=== PATIENT | female | born 1950 | race Caucasian/White ===

== ENCOUNTER 2019-05-04 13:56 | Emergency (ER) | payer OTHER ==
[2019-05-04] MEDS ORDERED: HYDROCODONE/APAP 7.5/325 MG TAB ONE ×2 (14:27→15:34)
[2019-05-04] MEDS ORDERED: TETANUS & DIPHTHERIA TOX,ADULT 0.5 ML VIAL ONE (14:27)
--- NOTE | 2019-05-04 15:05 | RAD REPORT ---
EXAM DESCRIPTION: RAD - Wrist Right 3 View - 05/04/2019 2:53 pm CLINICAL HISTORY: Right wrist pain status post injury FINDINGS: No fracture or dislocation is seen. The bones are osteoporotic If the patient continues to have symptoms to suggest an occult fracture then a followup plain film se ana in 7 days would be recommended.
--- NOTE | 2019-05-04 15:08 | RAD REPORT ---
EXAM DESCRIPTION: Amirah Lucia Left05/04/2019 2:52 pm CLINICAL HISTORY: Left leg pain status post injury FINDINGS: No fracture is seen
--- NOTE | 2019-05-04 15:11 | ER ---
Nurse's Notes [facility] Name: Phylicia Ghotra Age: 68 yrs Sex: Female : 1950 Arrival Date: 05/04/2019 Time: 13:59 Bed 6 Private MD: Eliseo Richardson R Diagnosis: Fall due to bumping against object;Abrasion of right wrist;Contusion of right hip;Contusion of right knee;Contusion of left lower leg Presentation: 05/04 14:05 Presenting complaint: Patient states: i fell about 15 minutes, i was putting away a tw2 scooter and i tripped over it and landed on my RIGHT hand and right knee, i am on blood thinners, my head it a bucket. i got dizzy but i did not pass out. Transition of care: patient was not received from another setting of care. Onset of symptoms was May 04, 2019. Risk Assessment: Do you want to hurt yourself or someone else? Patient reports no desire to harm self or others. Initial Sepsis Screen: Does the patient meet any 2 criteria? No. Patient's initial sepsis screen is negative. Does the patient have a suspected source of infection? No. Patient's initial sepsis screen is negative. Care prior to arrival: None. 14:05 Method Of Arrival: Ambulatory tw2 14:05 Acuity: ZINA 3 tw2 14:17 Mechanism of Injury: Fall from standing position. Trauma event details: Injury occurred ca1 in the [facility], Injury occurred: at home. Injury occurred: May 04, 2019. Triage Assessment: 14:08 General: Appears uncomfortable, Behavior is crying. Pain: Complains of pain in right tw2 arm and right leg and right hip. Trauma Activation: Alert Physician: ED Physician; Name: ; Notified At: ; Arrived At: Physician: General Surgeon; Name: ; Notified At: ; Arrived At: Physician: Radiology; Name: ; Notified At: ; Arrived At: Physician: Respiratory; Name: ; Notified At: ; Arrived At: Physician: Lab; Name: ; Notified At: ; Arrived At: Historical: - Allergies: 14:08 meloxicam; tw2 - Home Meds: 14:08 Xarelto 20 mg oral tab 1 tab once daily [Active]; tw2 - PMHx: 14:08 Atrial Fib; GERD; tw2 14:09 blood clots; tw2 - Immunization history:: Last tetanus immunization: unknown. - Social history:: Smoking status: . - Immunization history: Last tetanus immunization: unknown. - Ebola Screening: : Patient denies travel to an Ebola-affected area in the 21 days before illness onset. Screenin:13 Abuse screen: Denies threats or abuse. Nutritional screening: No deficits noted. tw2 Tuberculosis screening: No symptoms or risk factors identified. Fall Risk None identified. Primary Survey: 14:17 NO uncontrolled hemorrhage observed. A: The patient is alert. Airway: patent. ca1 Breathing/Chest: Respiratory pattern: regular, Respiratory effort: spontaneous, unlabored, Chest inspection: symmetrical rise and fall of the chest. Circulation: Heart tones present. Pulses: palpable bilateral radial, brachial, femoral, popliteal, posterior tibial and and dorsalis pedis arteries.. Skin color: pink, Skin temperature: warm, dry. Disability Alert. Exposure/Environment: All clothing and personal items were removed. Forensic evidence collection is not deemed to be indicated at this time. Items placed in patient belonging bag. There is no evidence of uncontrolled external bleeding. Obvious injury(ies) are noted at this time: abrasion on R palmar aspect of wrist, bruises on R knee and L calf. 15:15 Reassessment Airway Airway Patent Breathing/Chest Respiratory pattern Regular ca1 Respiratory effort Spontaneous Unlabored Chest inspection Symmetrical Circulation Heart tones Present Pulses Palpable Color [place] Temperature Warm Dry. Assessment: 14:09 Reassessment: provider at bedside. tw2 14:20 General: Appears in no apparent distress. comfortable, Behavior is calm, cooperative, ca1 appropriate for age. Pain: Complains of pain in right leg and right arm Pain currently is 9 out of 10 on a pain scale. Neuro: Level of Consciousness is awake, alert, obeys commands, Oriented to person, place, time, situation. Cardiovascular: Heart tones S1 S2 present Capillary refill < 3 seconds Patient's skin is warm and dry. Respiratory: Airway is patent Respiratory effort is even, unlabored, Respiratory pattern is regular, symmetrical, Breath sounds are clear bilaterally. GI: Abdomen is flat, non-distended, Bowel sounds present X 4 quads. Abd is soft and non tender X 4 quads. : No deficits noted. No signs and/or symptoms were reported regarding the genitourinary system. EENT: No deficits noted. No signs and/or symptoms were reported regarding the EENT system. Derm: Skin is healthy with good turgor, Skin is pink, warm \T\ dry. Bruising that is green, on right leg and left leg. Musculoskeletal: Circulation, motion, and sensation intact. Capillary refill < 3 seconds, Range of motion: limited in right wrist. Injury Description: Abrasion sustained to palmar aspect of right wrist is dirty, was sustained less than 30 minutes ago. 15:45 Reassessment: No changes from previously documented assessment. Patient is alert, ca1 oriented x 3, equal unlabored respirations, skin warm/dry/pink. Vital Signs: 14:06 BP 139 / 71; Pulse 81; Resp 17; Temp 96.9(TE); Pulse Ox 99% on R/A; Weight 81.65 kg tw2 (R); Height 5 ft. 8 in. (172.72 cm); Pain 9/10; 15:45 BP 123 / 67; Pulse 86; Resp 17 S; Pulse Ox 99% on R/A; ca1 14:06 Body Mass Index 27.37 (81.65 kg, 172.72 cm) tw2 [place] Coma Score: 14:17 Eye Response: spontaneous(4). Verbal Response: oriented(5). Motor Response: obeys ca1 commands(6). Total: 15. Trauma Score (Adult): 14:17 Eye Response: spontaneous(1); Verbal Response: oriented(1); Motor Response: obeys ca1 commands(2); Systolic BP: > 89 mm Hg(4); Respiratory Rate: 10 to 29 per min(4); [place] Score: 15; Trauma Score: 12 ED Course: 13:59 Patient arrived in ED. mr 14:00 Eliseo Richardson MD is Private Physician. mr 14:06 Triage completed. tw2 14:06 Billy Thayer MD is Attending Physician. riaz 14:07 Arm band placed on. tw2 14:09 Elaine Alvares, LATOYA is Primary Nurse. ca1 14:09 Bed in low position. Call light in reach. Adult w/ patient. tw2 14:17 Patient maintains SpO2 saturation greater than 95% on room air. ca1 14:20 Pulse ox on. NIBP on. Warm blanket given. ca1 14:22 Thermoregulation: warm blanket given to patient. ca1 15:11 Eliseo Richardson MD is Referral Physician. [facility] 15:50 No provider procedures requiring assistance completed. Patient did not have IV access ca1 during this emergency room visit. Wound care: to abrasion, located on palmar aspect of right wrist was cleaned with Hibiclens, dressed with Neosporin, 4X4s, Kerlix, Patient tolerated well. 15:52 Crutch training done. Demian wrap to right wrist. 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 Exp: ca1 11/10/2020. Lot #: [id number]. } Route: IM; Site: left deltoid; 15:50 Follow up: Response: No adverse reaction ca1 14:30 Drug: [place] (7.5 mg-325 mg) 2 tabs Route: PO; ca1 14:31 Follow up: Response: RASS: Alert and Calm (0) ca1 15:51 Follow up: Response: No adverse reaction; Pain is decreased; RASS: Alert and Calm (0) ca1 15:44 Drug: Neosporin Ointment 1 application Route: Topical; Site: affected area; ca1 Output: 16:01 Urine: 30ml (Voided); Total: 30ml. ca1 Outcome: 15:11 Discharge ordered by . riaz 16:01 Patient's length of stay was not longer than 2 hours. ca1 16:01 Discharged to home via wheelchair, with significant other. ca1 16:01 Condition: stable 16:01 Discharge instructions given to patient, Instructed on discharge instructions, follow up and referral plans. medication usage, crutch walking, Demonstrated understanding of instructions, follow-up care, medications, crutch walking, Prescriptions given X 1. 16:02 Patient left the ED. ca1 Signatures: Billy Thayer MD MD cha Rivera, Mary mr Gisselle Lewis RN RN tw2 Elaine Alvares RN RN ca1 Corrections: (The following items were deleted from the chart) 14:13 14:07 Reassessment: provider at bedside tw2 tw2
--- NOTE | 2019-05-04 15:12 | EDPHYS ---
Physician Documentation [facility] Name: Phylicia Ghotra Age: 68 yrs Sex: Female : 1950 Arrival Date: 05/04/2019 Time: 13:59 Bed 6 Private MD: Eliseo Richardson R ED Physician Billy Thayer HPI: 05/04 14:19 This 68 yrs old Female presents to ER via Ambulatory with complaints of Fall riaz Injury. 14:19 Details of fall: The patient fell from an upright position, while walking. Onset: The riaz symptoms/episode began/occurred just prior to arrival. Associated injuries: The patient sustained pelvis, right arm, right leg and left leg, decreased range of motion, painful injury. Severity of symptoms: At their worst the symptoms were moderate, in the emergency department the symptoms are unchanged. The patient has not experienced similar symptoms in the past. Historical: - Allergies: 14:08 meloxicam; tw2 - Home Meds: 14:08 Xarelto 20 mg oral tab 1 tab once daily [Active]; tw2 - PMHx: 14:08 Atrial Fib; GERD; tw2 14:09 blood clots; tw2 - Immunization history:: Last tetanus immunization: unknown. - Social history:: Smoking status: . - Immunization history: Last tetanus immunization: unknown. - Ebola Screening: : Patient denies travel to an Ebola-affected area in the 21 days before illness onset. ROS: 14:20 Constitutional: Negative for fever, chills, and weight loss, Eyes: Negative for injury, riaz pain, redness, and discharge, ENT: Negative for injury, pain, and discharge, Neck: Negative for injury, pain, and swelling, Cardiovascular: Negative for chest pain, palpitations, and edema, Respiratory: Negative for shortness of breath, cough, wheezing, and pleuritic chest pain, Abdomen/GI: Negative for abdominal pain, nausea, vomiting, diarrhea, and constipation, Back: Negative for injury and pain, : Negative for injury, bleeding, discharge, and swelling, Neuro: Negative for headache, weakness, numbness, tingling, and seizure, Psych: Negative for depression, anxiety, suicide ideation, homicidal ideation, and hallucinations, Allergy/Immunology: Negative for hives, rash, and allergies, Endocrine: Negative for neck swelling, polydipsia, polyuria, polyphagia, and marked weight changes, Hematologic/Lymphatic: Negative for swollen nodes, abnormal bleeding, and unusual bruising. 14:20 MS/extremity: Positive for abrasion, decreased range of motion, pain, of the pelvis, right arm, right leg and left leg. Exam: 14:20 Constitutional: This is a well developed, well nourished patient who is awake, alert, riaz and in no acute distress. Head/Face: Normocephalic, atraumatic. Eyes: Pupils equal round and reactive to light, extra-ocular motions intact. Lids and lashes normal. Conjunctiva and sclera are non-icteric and not injected. Cornea within normal limits. Periorbital areas with no swelling, redness, or edema. ENT: Nares patent. No nasal discharge, no septal abnormalities noted. Tympanic membranes are normal and external auditory canals are clear. Oropharynx with no redness, swelling, or masses, exudates, or evidence of obstruction, uvula midline. Mucous membranes moist. Neck: Trachea midline, no thyromegaly or masses palpated, and no cervical lymphadenopathy. Supple, full range of motion without nuchal rigidity, or vertebral point tenderness. No Meningismus. Chest/axilla: Normal chest wall appearance and motion. Nontender with no deformity. No lesions are appreciated. Cardiovascular: Regular rate and rhythm with a normal S1 and S2. No gallops, murmurs, or rubs. Normal PMI, no JVD. No pulse deficits. Respiratory: Lungs have equal breath sounds bilaterally, clear to auscultation and percussion. No rales, rhonchi or wheezes noted. No increased work of breathing, no retractions or nasal flaring. Abdomen/GI: Soft, non-tender, with normal bowel sounds. No distension or tympany. No guarding or rebound. No evidence of tenderness throughout. Back: No spinal tenderness. No costovertebral tenderness. Full range of motion. Female : Normal external genitalia. Neuro: Awake and alert, GCS 15, oriented to person, place, time, and situation. Cranial nerves II-XII grossly intact. Motor strength 5/5 in all extremities. Sensory grossly intact. Cerebellar exam normal. Normal gait. Psych: Awake, alert, with orientation to person, place and time. Behavior, mood, and affect are within normal limits. 14:20 Skin: injury, abrasion(s), moderate sized abrasion noted, of the right wrist and right hand, avulsion(s). 14:22 Head/face: Exam is negative for acute changes, obvious evidence of injury or deformity, riaz abrasion(s), morales signs, contusion, deformity, ecchymosis, erythema. 14:22 Neck: Exam negative for acute changes. Vital Signs: 14:06 BP 139 / 71; Pulse 81; Resp 17; Temp 96.9(TE); Pulse Ox 99% on R/A; Weight 81.65 kg tw2 (R); Height 5 ft. 8 in. (172.72 cm); Pain 9/10; 15:45 BP 123 / 67; Pulse 86; Resp 17 S; Pulse Ox 99% on R/A; ca1 14:06 Body Mass Index 27.37 (81.65 kg, 172.72 cm) tw2 [place]a Coma Score: 14:17 Eye Response: spontaneous(4). Verbal Response: oriented(5). Motor Response: obeys ca1 commands(6). Total: 15. Trauma Score (Adult): 14:17 Eye Response: spontaneous(1); Verbal Response: oriented(1); Motor Response: obeys ca1 commands(2); Systolic BP: > 89 mm Hg(4); Respiratory Rate: 10 to 29 per min(4); [place] Score: 15; Trauma Score: 12 MDM: 14:07 Patient medically screened. [facility] 14:21 Data reviewed: vital signs, nurses notes, lab test result(s), radiologic studies. [facility] 05/04 14:18 Order name: Pelvis XRAY [facility] 05/04 14:18 Order name: Hip Right 2 View XRAY [facility] 05/04 14:18 Order name: Tib Fib Left XRAY [facility] 05/04 14:18 Order name: Wrist Right 3 View XRAY [facility] 05/04 14:18 Order name: Knee Right 3 View XRAY [facility] 05/04 15:06 Order name: RAD; Complete Time: 15:32 EDMS 05/04 14:18 Order name: Ice pack; Complete Time: 14:21 [facility] 05/04 15:09 Order name: RAD; Complete Time: 15:32 EDMS 05/04 15:14 Order name: RAD; Complete Time: 15:32 EDNM 05/04 15:28 Order name: RAD; Complete Time: 15:32 [facility] 05/04 15:29 Order name: RAD; Complete Time: 15:32 [facility] 05/04 14:18 Order name: Wound dressing; Complete Time: 15:50 [facility] 05/04 14:24 Order name: Urine Dipstick-Ancillary (obtain specimen); Complete Time: 15:44 [facility] 05/04 15:33 Order name: Crutches; Complete Time: 15:50 [facility] Administered Medications: 14:30 Drug: Tetanus-Diphtheria Toxoid Adult 0.5 ml {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 Exp: ca1 11/10/2020. Lot #: [id number]. } Route: IM; Site: left deltoid; 15:50 Follow up: Response: No adverse reaction [facility] 14:30 Drug: [place] (7.5 mg-325 mg) 2 tabs Route: PO; ca1 14:31 Follow up: Response: RASS: Alert and Calm (0) ca1 15:51 Follow up: Response: No adverse reaction; Pain is decreased; RASS: Alert and Calm (0) [facility] 15:44 Drug: Neosporin Ointment 1 application Route: Topical; Site: affected area; ca1 Disposition: 05/04/19 15:11 Discharged to Home. Impression: Fall due to bumping against object, Abrasion of right wrist, Contusion of right hip, Contusion of right knee, Contusion of left lower leg. - Condition is Stable. - Discharge Instructions: Contusion, Knee Sprain, Knee Pain, Contusion, Gugk-pj-Hekb, Fall Prevention in the Home, Fact-xw-Vcdb, Hip Pain, Knee Sprain, Xgns-ik-Goow, Knee Pain, Jjvw-kh-Iept. - Prescriptions for Tylenol- Codeine #3 300-30 mg Oral Tablet - take 2 tablets by ORAL route every 6 hours As needed; 26 tablet. - Medication Reconciliation Form, Thank You Letter, Antibiotic Education, Prescription Opioid Use form. - Follow up: Eliseo Richardson; When: 2 - 3 days; Reason: Recheck today's complaints, Continuance of care, Re-evaluation by your physician. - Problem is new. - Symptoms have improved. Signatures: Dispatcher [employer] [facility] Billy Thayer MD MD cha Wise, Tara, RN RN tw2 Elaine Alvares RN RN ca1 Corrections: (The following items were deleted from the chart) 16:02 15:11 05/04/2019 15:11 Discharged to Home. Impression: Fall due to bumping against ca1 object; Abrasion of right wrist; Contusion of right hip; Contusion of right knee; Contusion of left lower leg. Condition is Stable. Discharge Instructions: Contusion, Knee Sprain, Knee Pain, Contusion, Dovr-hf-Qaqu, Fall Prevention in the Home, Nffz-so-Fkxz, Hip Pain, Knee Sprain, Eaee-ll-Pidx, Knee Pain, Oxjc-lz-Tzsq. Prescriptions for Tylenol-Codeine #3 300-30 mg Oral Tablet - take 2 tablets by ORAL route every 6 hours As needed; 26 tablet. and Forms are Medication Reconciliation Form, Thank You Letter, Antibiotic Education, Prescription Opioid Use. Follow up: Eliseo Richardson; When: 2 - 3 days; Reason: Recheck today's complaints, Continuance of care, Re-evaluation by your physician. Problem is new. Symptoms have improved. riza
--- NOTE | 2019-05-04 15:12 | RAD REPORT ---
EXAM DESCRIPTION: RAD - Knee Right 3 View - 05/04/2019 2:55 pm CLINICAL HISTORY: Right knee pain status post injury FINDINGS: No fracture or dislocation is seen. Osteoporosis Chondrocalcinosis is present If the patient continues to have symptoms to suggest an occult fracture, ligamentous or meniscal inju ry MRI would be recommended
--- NOTE | 2019-05-04 15:28 | RAD REPORT ---
EXAM DESCRIPTION: RAD - Pelvis - 05/04/2019 2:55 pm CLINICAL HISTORY: Right hip pain FINDINGS: Curvilinear low-density area within the inferior aspect of the greater trochanter probably represents a prominent trabecula. A nondisplaced fracture can also have a similar appearance. If pat ient continues have symptoms to suggest an occult fracture MRI would be recommended No dislocation Osteoporosis
--- NOTE | 2019-05-04 15:28 | RAD REPORT ---
EXAM DESCRIPTION: RAD - Hip Right 2 View - 05/04/2019 2:55 pm CLINICAL HISTORY: Right hip pain FINDINGS: Curvilinear low-density area within the inferior aspect of the greater trochanter probably represents a prominent trabecula. A nondisplaced fracture can also have a similar appearance. If pat ient continues have symptoms to suggest an occult fracture MRI would be recommended No dislocation Osteoporosis
[2019-05-04 16:46] VITALS: TEMP 96.9; O2SAT 99
[2019-05-04 16:48] VITALS: BP 123/67
== END 2019-05-04 16:02 | disposition home or self-care (01) ==
LOC: ER 13:56
DX: S60.811A Abrasion of right wrist, initial encounter (principal); S70.01XA Contusion of right hip, initial encounter; S80.01XA Contusion of right knee, initial encounter; S80.12XA Contusion of left lower leg, initial encounter; W18.00XA Striking against unspecified object with subsequent fall, initial encounter; Y93.01 Activity, walking, marching and hiking; Y92.9 Unspecified place or not applicable; I48.91 Unspecified atrial fibrillation; Z79.01 Long term (current) use of anticoagulants; Z88.6 Allergy status to analgesic agent
CPT/HCPCS: 72170; 90471; 90714; 99284

== ENCOUNTER 2020-08-19 09:08 | Emergency (ER) | payer OTHER ==
--- NOTE | 2020-08-19 10:31 | RAD REPORT ---
EXAM DESCRIPTION: RAD - Foot Right 3 View - 08/19/2020 10:01 am CLINICAL HISTORY: PAIN, trauma to foot, specific site of pain not delineated COMPARISON: None FINDINGS: Fracture is present at the proximal shaft third proximal phalanx. No distraction or angula tion deformity. No other fractures confirmed. Mild IP joint space narrowing present without spurring or erosion. Patient has small plantar spur and small to moderate Achilles spur. Tibiotalar joint space degenerative change present. No air or foreign body in the soft tissues. IMPRESSION: Fracture involves the right third proximal phalanx without distraction or angulation def ormity.
--- NOTE | 2020-08-19 11:39 | EDPHYS ---
Physician Documentation [facility] Name: Phylicia Ghotra Age: 69 yrs Sex: Female : 1950 Arrival Date: 08/19/2020 Time: 09:14 Bed 16 Private MD: Eliseo Richardson R ED Physician Billy Thayer HPI: 08/19 09:35 This 69 yrs old Female presents to ER via Unassigned with complaints of Foot jmm Pain, Foot Injury. 09:35 The patient presents with an injury, pain. Onset: The symptoms/episode began/occurred jmm acutely, just prior to arrival. Modifying factors: The symptoms are alleviated by nothing. the symptoms are aggravated by nothing. Associated signs and symptoms: Pertinent positives: swelling, Pertinent negatives fever. This is a 69 year old female that presents to the ED with complaints of right foot pain. Patient states 4 days ago stubbing her right foot and 2 days ago dropping a phone on it. . Historical: - Allergies: 09:36 meloxicam; bp - Home Meds: 09:36 Xarelto 20 mg Oral tab 1 tab once daily [Active]; Effexor Oral [Active]; bp - PMHx: 09:36 Atrial Fib; blood clots; GERD; Arthritis; bp - Immunization history:: Adult Immunizations up to date. - Social history:: Smoking status: Patient denies any tobacco usage or history of. ROS: 09:35 Constitutional: Negative for fever, chills, and weight loss, Cardiovascular: Negative jmm for chest pain, palpitations, and edema, Respiratory: Negative for shortness of breath, cough, wheezing, and pleuritic chest pain. 09:35 MS/extremity: Positive for pain. 09:35 All other systems are negative. Exam: 09:35 Constitutional: This is a well developed, well nourished patient who is awake, alert, jmm and in no acute distress. Head/Face: atraumatic. Eyes: EOMI, no conjunctival erythema appreciated ENT: Moist Mucus Membranes Neck: Trachea midline, Supple Chest/axilla: Normal chest wall appearance and motion. Cardiovascular: Regular rate and rhythm. No edema appreciated Respiratory: Normal respirations, no respiratory distress appreciated Abdomen/GI: Non distended, soft Back: Normal ROM Skin: General appearance color normal 09:35 Musculoskeletal/extremity: pain on palpation of the right foot, swelling appreciated, compartments are soft, NVI. 09:35 Skin: Appearance: Color: normal in color. 09:35 Neuro: Orientation: is normal, Mentation: is normal, Memory: is normal. 09:35 Psych: Behavior/mood is pleasant, cooperative. Vital Signs: 09:34 BP 180 / 84; Pulse 70; Resp 16; Temp 98.3; Pulse Ox 99% ; Weight 81.65 kg; Height 5 ft. bp 10 in. (177.80 cm); 10:30 BP 161 / 77; Pulse 64; Resp 17; Pulse Ox 99% ; bp 11:25 BP 146 / 79; Pulse 60; Resp 17; Pulse Ox 98% ; bp 09:34 Body Mass Index 25.83 (81.65 kg, 177.80 cm) bp MDM: 09:25 Patient medically screened. [facility] 11:36 Data reviewed: vital signs, nurses notes. Counseling: I had a detailed discussion with [facility] the patient and/or guardian regarding: the historical points, exam findings, and any diagnostic results supporting the discharge/admit diagnosis, radiology results, the need for outpatient follow up, to return to the emergency department if symptoms worsen or persist or if there are any questions or concerns that arise at home. ED course: Patient will follow up with ortho for further evaluation. Patient understood and agrees with the plan of care. . 08/19 09:30 Order name: Foot Right 3 View XRAY; Complete Time: 10:32 [facility] 08/19 10:35 Order name: Misc. Order: jassi tape, ortho shoe; Complete Time: 11:24 [facility] Administered Medications: No medications were administered Disposition: 08/20 09:37 Co-signature as Attending Physician, Billy Thayer MD I agree with the assessment and [facility] plan of care. Disposition: 08/19/20 11:38 Discharged to Home. Impression: Toe Fracture. - Condition is Stable. - Discharge Instructions: How to Jassi Tape, Toe Fracture. - Medication Reconciliation Form, Thank You Letter, Antibiotic Education, Prescription Opioid Use form. - Follow up: Abel Bess DPM; When: 2 - 3 days; Reason: Recheck today's complaints, Continuance of care, Re-evaluation by your physician. Signatures: Dispatcher [employer] EDBilly Samayoa MD MD cha Mickail, Julien, PA PA Abel Carlos, RN RN bp Corrections: (The following items were deleted from the chart) 08/19 11:52 11:38 08/19/2020 11:38 Discharged to Home. Impression: Toe Fracture. Condition is bp Stable. Forms are Medication Reconciliation Form, Thank You Letter, Antibiotic Education, Prescription Opioid Use. Follow up: Dr. Abel Bess; When: 2 - 3 days; Reason: Recheck today's complaints, Continuance of care, Re-evaluation by your physician. blanche
--- NOTE | 2020-08-19 11:39 | ER ---
Nurse's Notes [facility] Name: Phylicia Ghotra Age: 69 yrs Sex: Female : 1950 Arrival Date: 08/19/2020 Time: 09:14 Bed 16 Private MD: Eliseo Richardson R Diagnosis: Toe Fracture Presentation: 08/19 09:34 Chief complaint: Patient states: DROPPED PHONE ON R FOOT 2 DAYS AGO. Coronavirus bp screen: At this time, the client does not indicate any symptoms associated with coronavirus-19. Ebola Screen: No symptoms or risks identified at this time. Initial Sepsis Screen: Does the patient meet any 2 criteria? No. Patient's initial sepsis screen is negative. Does the patient have a suspected source of infection? No. Patient's initial sepsis screen is negative. Risk Assessment: Do you want to hurt yourself or someone else? Patient reports no desire to harm self or others. Onset of symptoms is unknown. 09:34 Method Of Arrival: Wheelchair bp 09:34 Acuity: ZINA 4 bp Triage Assessment: 09:36 General: Appears in no apparent distress. uncomfortable, Behavior is calm, cooperative, bp appropriate for age. Pain: Complains of pain in right foot. EENT: No deficits noted. Neuro: No deficits noted. Cardiovascular: No deficits noted. Respiratory: No deficits noted. GI: No signs and/or symptoms were reported involving the gastrointestinal system. : No signs and/or symptoms were reported regarding the genitourinary system. Derm: No deficits noted. Musculoskeletal: Swelling present in right foot. Injury Description: Bruise sustained to right foot. Historical: - Allergies: 09:36 meloxicam; bp - Home Meds: 09:36 Xarelto 20 mg Oral tab 1 tab once daily [Active]; Effexor Oral [Active]; bp - PMHx: 09:36 Atrial Fib; blood clots; GERD; Arthritis; bp - Immunization history:: Adult Immunizations up to date. - Social history:: Smoking status: Patient denies any tobacco usage or history of. Screenin:37 Abuse screen: Denies threats or abuse. Denies injuries from another. Nutritional bp screening: No deficits noted. Tuberculosis screening: No symptoms or risk factors identified. Fall Risk None identified. Assessment: 09:37 General: SEE TRIAGE NOTE. bp 11:25 Reassessment: Patient appears in no apparent distress at this time. Patient and/or bp family updated on plan of care and expected duration. Pain level reassessed. Patient is alert, oriented x 3, equal unlabored respirations, skin warm/dry/pink. SPLINTING COMPLETE, PT EXPRESSES RELIEF OF S/S. DISPO PENDING. 11:51 Reassessment: PT D/C HOME AMBULATORY, DX WITH TOE FX. bp Vital Signs: 09:34 BP 180 / 84; Pulse 70; Resp 16; Temp 98.3; Pulse Ox 99% ; Weight 81.65 kg; Height 5 ft. bp 10 in. (177.80 cm); 10:30 BP 161 / 77; Pulse 64; Resp 17; Pulse Ox 99% ; bp 11:25 BP 146 / 79; Pulse 60; Resp 17; Pulse Ox 98% ; bp 09:34 Body Mass Index 25.83 (81.65 kg, 177.80 cm) bp ED Course: 09:14 Patient arrived in ED. am2 09:15 Eliseo Richardson MD is Private Physician. am2 09:16 [facility] jmm 09:16 Billy Thayer MD is Attending Physician. jmm 09:23 Joey Andrew RN is Primary Nurse. jd3 09:35 Triage completed. bp 09:36 Arm band placed on. bp 09:37 Patient has correct armband on for positive identification. Bed in low position. Call bp light in reach. Side rails up X2. 10:01 Foot Right 3 View XRAY In Process Unspecified. EDMS 11:24 Adonay tape right foot Ortho shoe applied to right foot. bp 11:37 Abel Bess DPM is Referral Physician. jmm 11:52 Billy Thayer MD is Attending Physician. bp 11:52 No provider procedures requiring assistance completed. Patient did not have IV access bp during this emergency room visit. Administered Medications: No medications were administered Outcome: 11:38 Discharge ordered by . jmm 11:52 Discharged to home ambulatory. bp 11:52 Condition: stable 11:52 Discharge instructions given to patient, Instructed on discharge instructions, follow up and referral plans. Demonstrated understanding of instructions, follow-up care, splint care. 11:52 Patient left the ED. bp Signatures: Dispatcher [employer] Julien Coronado PA PA jmm Moreno, Amanda am2 Joey Andrew, RN RN jd3 Abel Mckenzie RN RN bp
[2020-08-19 20:59] VITALS: TEMP 98.3
[2020-08-19 21:01] VITALS: BP 146/79; O2SAT 98
== END 2020-08-19 11:52 | disposition home or self-care (01) ==
LOC: ER 09:08
DX: S92.511A Displaced fracture of proximal phalanx of right lesser toe(s), initial encounter for closed fracture (principal); W22.09XA Striking against other stationary object, initial encounter; W20.8XXA Other cause of strike by thrown, projected or falling object, initial encounter; I48.91 Unspecified atrial fibrillation; Z79.01 Long term (current) use of anticoagulants; K21.9 Gastro-esophageal reflux disease without esophagitis; M19.90 Unspecified osteoarthritis, unspecified site; Z86.718 Personal history of other venous thrombosis and embolism
CPT/HCPCS: 99283

== ENCOUNTER 2024-08-28 07:13 | Emergency (ER) | payer OTHER ==
--- OUTSIDE RECORDS SUMMARY | 2024-08-28 07:16 | XMS REPORT | Continuity of Care Document ---
Author Name Unknown Address [address] [facility] [address] [place] [address] [facility] Address [address] [facility] [address] [place] [address] Care Team Providers Care Shoe Stitcher Odd Name Role Phone Frances Canchola DO Jaylan Primary Care Physician +1- [phone] Alber Ivey Attending Clinician Unavailable BRADEN BESS Attending Clinician Unavail able Selbst Braden SANDOVAL Attending Clinician +1- [phone] [email or web address] Attending Clinician Unavaila ble Alber Ivey Admitting Clinician Unavailable [email or web address] Admitting Clinician Unavaila ble Payers Payer Name Policy Type Policy Number Effective Date Expiration Date Source MEDICARE PART A AND B Medicare [id number] 2024 00:00:00 [employer] MEDICARE SUPPLEMENT COMM [id number] 2013 00:00:00 [employer] PPO 512 [id number] [place] Special[place] Problems Condition Name Condition Details Condition Category Status Onset Date Resolution Date Last Treatment Date Treating Clinician Comments Source Congenital metatarsus adductus, left foot Congenital metatarsus adductus, left foot Problem [facility] [facility] Allergies, Adverse Reactions, Alerts Allergy Name Allergy Type Status Severity Reaction(s) Onset Date Inactive Date Treating Clinician Comments Source meloxica emerald DA Active U Rash 08-22 00:00: 00 [facility] meloxica m DA Active U Rash 17 00:00: 00 [facility] Meloxica emerald Propensi ty to adverse reaction s Active 03-06 00:00: 00 Alba pritchett [facility] Social History Social Habit Start Date Stop Date Quantity Comments Source ASSERTION Possible [facility] of Tobacco Use [place] [facility] Sex Assigned At [facility] [facility] Smoking Status Start Date Stop Date Source Tobacco smoking consumption unknown [facility] Never Smoker [facility] Medications Ordered Medication Name Filled Medication Name Start Date Stop Date Current Medication? Ordering Clinician Indication Dosage Frequency Signature (SIG) Comments Components Source Olmesartan Medoxomil 5 MG Olmesartan Medoxomil 5 MG No Olmesartan Medoxomil 5 MG Levoxyl 25 MCG Levoxyl 25 MCG No Levoxyl 25 MCG Xarelto 20 MG Xarelto 20 MG No Xarelto 20 MG Montelukast Sodium 10 MG Montelukast Sodium 10 MG No Montelukas t Sodium 10 MG Levocetiriz ine Dihydrochlo ride 5 MG Levocetiriz ine Dihydrochlo ride 5 MG No Levocetiri zine Dihydrochl oride 5 MG Donepezil HCl 5 MG Donepezil HCl 5 MG No Donepezil HCl 5 MG Encounters Start Date/Time End Date/Time Encounter Type Admission Type Attending Clinicians Care Facility Care Department Encounter ID Source 2023-12-17 10:54:01 Outpatient Frances Canchola [facility] [id number] [place] [employer] [facility] 2024-08-22 10:18:00 2024-08-23 13:43:00 Outpatient Urgent Alber Ivey [facility] Medical Service [id number] [facility] 2024-06-12 09:29:41 2024-06-12 09:56:14 Outpatient Elective [facility] [id number] 2024-06-12 09:30:00 2024-06-12 09:40:00 Office Visit SelBraden baugh [facility] [id number] Alba pritchett [facility] 2024-03-20 10:23:30 2024-03-20 11:15:34 Outpatient Elective SELBST, [facility]ADEN [facility] [id number] EOUT 2024-03-06 10:10:03 2024-03-06 11:06:48 Outpatient Elective SELBST, BRADEN EOUT EOUT [id number] EOUT 2024-01-28 00:00:00 2024-01-28 00:00:00 (TEL) CLS CLS [id number] Carol spicer 2024-01-06 00:00:00 2024-01-06 00:00:00 Office Visit- Est Pt.- Level 3 CLS CLS [id number] Carol spicer 2023-12-17 00:00:00 2023-12-17 00:00:00 Office Visit- New Pt.- Level 3 CLS CLS [id number] Carol spicer 2023-04-07 00:00:00 2023-04-07 00:00:00 Outpatient [email or web address] [email or web address] PRIV PRIV [id number] [facility] Medical Notes Date/Time Note Provider Source 2024-08-23 11:31:00 [facility] C enter [address] [place] [address] Discharge Summary Signed Patient: Acacia Chapa Medical Record#: [id number] : 1950 Acct:[id number] Age/Sex: 73 / F Admit/Reg Date: 08/22/24 Loc: [id number] Room: [address] Report Number: [id number]: Alber Ivey MD DS: Providers Primary Care Provider: Pcp-Md Jason Attending physician on admission: Alber Ivey Consults: 08/22/24 10:43 Occupational Therapy Consult Routine Comment: Physician Instructions: no right shoulder exercise Reason For Exam: post right shoulder arthroplasty Weight Bearing Status: Full weight bearing Potential discharge today?: No Fall Risk Score Total: 5 Physical Therapy Consult Routine Comment: Physician Instructions: Reason For Exam: post right shoulder arthroplasty Weight Bearing Status: Full weight bearing Potential discharge today?: No Fall Risk Score Total: 5 08/22/24 11:04 Hospitalist Consult Routine Comment: Consulting Provider: Sin Tolentino Physician Instructions: Reason For Exam: Pain Control and Medical Management Attending physician on discharge: Alber Ivey Discharging clinician: Sin Tolentino DS: Diagnosis - Discharge Diagnosis (1) Observation after surgery Status: Acute DS: Summary Date of Admit: 08/22/24 10:18 Date of Encounter: 08/23/24 Date of Discharge: 08/23/24 Hospital course: Patient is 73-year-old female with following problems: 1. Right rotator cuff tear status post Right total shoulder reverse arthroplasty by Dr. Hall 2. A-fib 3. Hypertension 4. GERD 5. Depression Plan: Admit patient to med surgical floor. Monitor vitals as per routine. Continue all postop orders as per Dr. Hall. Pain control with morphine and oxycodone. Hydralazine 10 mg IV as needed for any elevated blood pressure. Medications these consideration done and resumed all necessary home medication other than Xarelto Zofran 4 mg as needed for any elevated blood pressure. Consult PT/OT to evaluate and treat. DVT prophylaxis SCD 08/23: Patient is seen in her room. She remains hemodynamically stable. She had some nausea and was given Zofran for that. Patient seen by PT/OT. Patient cleared by Ortho for discharge. Plan is to discharge patient home with instructions to resume all home meds as before and follow-up with Ortho in 1 to 2 weeks. Prescription for tramadol 50 mg #30 sent to the patient pharmacy. - Time Spent with Patient Total time spent providing and/or coordinating discharge services: - Location and Group Information SMG-billable encounter: Yes Service location: outpatient/observation Provider [facility] Encounter Coding Attending date of service: 08/23/24 Hospital discharge services: [id number] discharge mgmt over 30 mins Discharge service time spent (mins): 35 - Attestation Attestation: I have reviewed all pertinent laboratory findings. Confirm Results Attestation: Yes Results check: Pass Exam Vital signs: Temp Pulse Resp BP Pulse Ox O2 Flow Rate 36.5 C 87 18 119/57 L 98 8 08/23/24 07:03 08/23/24 10:54 08/23/24 10:54 08/23/24 10:54 08/23/24 10:54 08/22/24 10:07 Narrative: General: Well nourished, no acute distress. HEENT: Normocephalic, PERRL, EOMI, normal conjunctiva, sclerae non-icteric, moist oral mucosa, normal tongue. Neck: Supple, non-tender, no lymphadenopathy, no thyromegaly. Lungs: Clear to auscultation, no respiratory distress. no wheeze, rales, or rhonchi. CV: Normal rate, regular rhythm, no murmur, gallop or rub, no carotid bruits, no JVD. Abdomen: Soft, nontender, nondistended, normal bowel sounds, no masses, no hepatosplenomegaly. Extremities: No cyanosis or edema, right shoulder covered with dressing and in sling Neurologic: Alert and oriented X 3, CN II-XII grossly intact, no motor deficit, normal sensation to touch, moving all 4 extremities well. Psychiatric: Cooperative, appropriate mood and affect. Skin: Warm, dry, no rashes or lesions, normal turgor, no induration. Body Mass Index (BMI): 26.5 Body Habitus: overweight DS: Data Did Patient have any Procedures?: No Does Patient have Pending Results?: No Discharge Plan - Medications Prescriptions: New tramadol 50 mg tablet 50 mg PO Q6H Qty: 30 RF: 0 Transmission Status: Received by [facility] [id number] Continued donepezil 5 mg Tablet 5 mg PO DAILY fluticasone propionate 50 mcg/actuation [place],Suspension 1 spray INTRANASAL BID lansoprazole 30 mg Capsule,Delayed Release(Dr/Ec) 30 mg PO DAILY levocetirizine 5 mg Tablet 5 mg PO DAILY levothyroxine 25 mcg Tablet 25 mcg PO DAILY montelukast 10 mg Tablet 10 mg PO DAILY olmesartan 5 mg Tablet 10 mg PO DAILY venlafaxine 150 mg Tablet Extended Release 24hr 150 mg PO DAILY Xarelto 20 mg Tablet 20 mg PO QPM - Follow up Plan Follow up with: Zoila Austin [Other] Alber Ivey MD [Staff Physician] - (call office for follow up appointment) - Disposition Disposition: Home or Self-Care - Discharge Orders Discharge Orders: Discharge (Routine); Ordered 08/23/24 Ordered By: Sin Tolentino - Discharge Data Reason For Visit: Right Shoulder Arthroplasty Primary Care Provider: PcpMd Matty Admit Provider: Alber Ivey Attending Provider: Alber Ivey Admit Date/Time: 08/22/24 10:18 - Patient/Caregiver Discharge Instructions Discharge Diagnosis:: Right shoulder arthroplasty Patient Education: Shoulder Arthroplasty (DC) Condition: Fair Diet: Regular Activity Restrictions: keep dressing dry and clean Do not remove dressing Wear arm sling at all time Follow up with Dr Ivey, please call office Regular diet - Discharge Information Print Language: Congolese Quality - Smoking Status Smoking Status: Never tobacco user Dictated By: Sin Tolentino MD Signed By: Sin Tolentino MD 08/23/24 1133 DD/ 1131 TD/TT: 08/23/24 1131 Sheeter Waxer Operator: TRICIA cc: TRICIA; [id number]; PCPNO* Alber Ivey MD; PcpMd JAMESON Starr; Sin Tolentino MD [facility] 2024-08-22 17:10:[address] [address] Orthopedics Operative Note Signed Patient: Acacia Chapa Medical Record#: [id number] : 1950 Acct:[id number] Age/Sex: 73 / F ADM Date: 08/22/24 Loc: [id number] Room: VH248N-P Report Number: [id number] Attending Dr: Alber Ivey MD Orthopedic Operative Note Date of Procedure: 08/22/24 Time of Procedure: 08:00 Pre-operative Diagnosis: Preoperative diagnosis is right shoulder cuff tear arthropathy the Pre-operative long diagnosis: The preoperative long diagnosis is a massive rotator cuff tear with shoulder superior migration and pain with motion Conservative Therapies Failed: The patient has failed conservative management including anti-inflammatories therapy and injections and based on her physical findings and plain film a reverse total shoulder arthroplasty is recommended Post-operative diagnosis: same as preoperative diagnosis Procedure Performed: Right total shoulder reverse arthroplasty Primary Surgeon: Alber Ivey md Nanotechnology Engineering Technician: Nanotechnology Engineering Technician surgeon Dr. Mitchell four-way. The Consent Obtained: obtained Time Out Performed: Yes Anesthesia: other Detailed Description of Procedure: The patient was brought to the operating room suite and placed supine on the operating room table. The patient then had an interscalene block given by anesthesia followed by endotracheal intubation. The patient was then positioned in the semi-Wells position with padding appropriately done on the lower extremities and neck. The upper extremity was then prepped and draped in sterile fashion followed by DuraPrep and then placement of Ioban on the shoulder. The procedure began by making a deltopectoral incision beginning at the AC joint and extending distally. The dissection continued through the cephalic vein which was retracted medially and the tributaries were ligated. The pectoralis major was incised and the superior 1 inch. Following this the 3 sisters were identified and ligated with 3-0 silk tie. The subscapularis was identified and leaving a centimeter of cuff laterally it was then subsequently incised. The shoulder was then dislocated and the capsule released with retractors placed in order to view the glenoid. Once done the humeral head had an oscillating saw cut the head with freehand technique. The intramedullary reaming began followed by a rasp and then a protective cap. Attention was then placed on the glenoid with 3 retractors placed along the glenoid and the capsule and labrum was completely completely incised and then subsequently the glenoid guide was placed centrally with an inferior tilt of about 15 degrees. The glenoid face was then wrapped reamed and then the intramedullary central hole was then subsequently reamed. The baseplate was then placed and then subsequently the central screw was placed onto the baseplate. Approximately 3 different screws were placed surgical around the glenoid the superior anterior inferior posterior and inferior anterior screws were placed with excellent security. The shoulder was then pulsatile lavage and then subsequently the glenosphere was then placed with a 33 mm glenosphere and then subsequently the central screw was placed. Attention was written to return to the humerus. The humerus had a rasp to the 8 mm size and then subsequently be actual trials were placed including the spacer. The spacer was a 6 mm spacer of the shoulder was reduced and noted to have good stability. The trial implants were then removed and then the actual implants were impacted in place and the shoulder reduced. Stability was checked in all ranges of motion and the shuck revealed only 1 mm inferior displacement. Attention was then turned to the AC joint where an incision was made subperiosteally elevating the trapezial anterior deltoid interval and then subsequently an oscillating saw to remove the proximately a centimeter of the distal clavicle. Pulsatile lavage followed and then #2 FiberWire was then used in order to secure the fascial elements back into its position. A medium Hemovac drain was placed in the shoulder followed by pulsatile lavage. The 2-0 Monocryl was used to close the ductal pectoral interval and 2-0 Monocryl for the subcutaneous tissue in interrupted fashion on the skin on the shoulder. The skin was closed with a 2-0 running Prolene suture and then the drain was secured with a medium Tegaderm. A soft dressing was applied to the shoulder followed by a sling. The patient tolerated the procedure well was extubated and transferred to the recovery room in stable condition. There were no complications with the procedure. Findings: Findings noted was a massive rotator cuff tear with lacking the supraspinatus and the partial infraspinatus. The Estimated Blood Loss: Estimated blood loss Additional Comments: The implants used was a 8 x 95 mm stem neutral humeral tray +3 x 33 mm line Drains: The drain was a medium Hemovac drain Complications: none Condition: stable and extubated Disposition: PACU Attending Documentation Confirm Attending Attestation: Yes Attending Attestation Statement: I personally saw the patient and performed a substantive portion of the visit including all aspects of the medical decision making. Dictated By: Alber Ivey MD Dictated By: Signed By: Alber Ivey MD 08/22/24 1729 DD/ 09 TD/TT: 08/22/241709 Sheeter Waxer Operator: LANRE cc: LANRE; PCPNO* Alber Ivey MD; Pcp-Md JAMESON Gomez [facility] 2024-08-22 11:48:00 [facility] enter [address] [place] [address] GM History Physical Signed Patient: Acacia Chapa Medical Record#: [id number] : 1950 Acct:[id number] Age/Sex: 73 / F Admit/Reg Date: 08/22/24 Loc: [id number] Room: HU027X-A Report Number: [id number] Attending Dr: Alber Ivey MD HPI Date of Encounter: 08/22/24 Chief complaint HPI: Status post right shoulder surgery History of Present Illness: Patient is 73-year-old female with past medical history of A-fib on oral anticoagulation with Xarelto, hypertension, hypothyroidism, depression and GERD was brought in by Dr. Hall for right shoulder surgery. Patient stopped her Xarelto 5 days ago. Patient tolerated the surgery well. Patient seen in PACU. Pain is under control. She denies any other acute physical complaint at this time. Past medical history: A-fib, hypertension, hypothyroidism, GERD, on oral anticoagulation with Xarelto, depression Past surgical history: Unremarkable Family history: Noncontributory Social history: She denies any tobacco, alcohol or any illicit drug use Home Medications: donepezil 5 mg tablet 5 mg PO DAILY 08/21/24 [History Confirmed 08/21/24 Last Taken 08/21/24] fluticasone propionate 50 mcg/actuation nasal spray,suspension 1 spray intranasal BID 08/21/24 [History Confirmed 08/21/24 Last Taken 08/21/24] lansoprazole 30 mg capsule,delayed release 30 mg PO DAILY 08/21/24 [History Confirmed 08/21/24 Last Taken 08/21/24] levocetirizine 5 mg tablet 5 mg PO DAILY 08/21/24 [History Confirmed 08/21/24 Last Taken 08/21/24] levothyroxine 25 mcg tablet 25 mcg PO DAILY 08/21/24 [History Confirmed 08/21/24 Last Taken 08/22/24 05:30] montelukast 10 mg tablet 10 mg PO DAILY 08/21/24 [History Confirmed 08/21/24 Last Taken 08/21/24] olmesartan 5 mg tablet 10 mg PO DAILY 08/21/24 [History Confirmed 08/21/24 Last Taken 08/22/24 05:30] rivaroxaban 20 mg tablet (Xarelto) 20 mg PO QPM 08/21/24 [History Confirmed 08/21/24 Last Taken 08/18/24] venlafaxine 150 mg tablet,extended release 24 hr 150 mg PO DAILY 08/21/24 [History Confirmed 08/21/24 Last Taken 08/21/24] Allergies/Adverse Reactions: meloxicam Allergy (Verified 08/22/24 06:14) Rash "itching" Past Medical/Surgical History Medical History: Medical History (Last Reviewed 08/22/24 @ 07:05 by Bessie Fair RN) Afib (Medical) I48.91 Complete rotator cuff tear or rupture of right shoulder, not specified as traumatic (Medical) M75.121 Depression (Medical) F32.A GERD (gastroesophageal reflux disease) (Medical) K21.9 Hiatal hernia (Medical) K44.9 High blood pressure (Medical) I10 Hypothyroid (Medical) E03.9 Memory problem (Medical) R41.3 Never a smoker (Social Hx) No history of adverse effect of anesthesia (Medical) Patient denies drug use (Medical) Primary osteoarthritis, right shoulder (Medical) M19.011 Quit drinking alcohol (Social Hx) Z87.898 Seasonal allergies (Medical) J30.2 Wears glasses (Medical) Z97.3 Surgical History: Surgical History (Last Updated 08/22/24 @ 07:32 by Bessie Fair RN) History of right knee surgery (Surgical) Onset Date: 2022 Z98.890 History of shoulder surgery (Surgical) Z98.890 right Intestinal bypass and anastomosis status (Surgical) Onset Date: 2001 Z98.0 "I weighed 340# and now I'm down to 172#" Family/Social History Smoking Status: Never tobacco user Review of Systems - Review of Systems Constitutional: No fever, no chills, no fatigue Eyes: No drainage. No visual problems ENT: No hearing difficulties. No nasal congestion. No Sore throat. No difficulty swallowing Resp: No cough, No shortness of breath Cardio: No chest pain, No palpitations, No swelling in legs, No syncope GI: No nausea, no vomiting, No abdominal pain : No dysuria, no frequency, No hematuria Skin: No rash Musculoskeletal: See HPI Neurologic: No focal weakness, No Numbness or tingling, No seizure, No tremors, No headaches Psych: No anxiety or depression 14 systems reviewed. Pertinent positives and negatives as noted. Exam Vital signs: Temp Pulse Resp BP Pulse Ox O2 Flow Rate 36.5 C 80 19 127/54 L 97 8 08/22/24 10:07 08/22/24 11:30 08/22/24 11:30 08/22/24 11:30 08/22/24 11:44 08/22/24 10:07 Narrative: General: Well nourished, no acute distress. HEENT: Normocephalic, PERRL, EOMI, normal conjunctiva, sclerae non-icteric, moist oral mucosa, normal tongue. Neck: Supple, non-tender, no lymphadenopathy, no thyromegaly. Lungs: Clear to auscultation, no respiratory distress. no wheeze, rales, or rhonchi. CV: Normal rate, regular rhythm, no murmur, gallop or rub, no carotid bruits, no JVD. Abdomen: Soft, nontender, nondistended, normal bowel sounds, no masses, no hepatosplenomegaly. Extremities: No cyanosis or edema, right shoulder covered with dressing and in sling Neurologic: Alert and oriented X 3, CN II-XII grossly intact, no motor deficit, normal sensation to touch, moving all 4 extremities well. Psychiatric: Cooperative, appropriate mood and affect. Skin: Warm, dry, no rashes or lesions, normal turgor, no induration. Body Mass Index (BMI): 26.5 Body Habitus: overweight Assessment and Plan Impression: Patient is 73-year-old female with following problems: 1. Right rotator cuff tear status post Right total shoulder reverse arthroplasty by Dr. Hall 2. A-fib 3. Hypertension 4. GERD 5. Depression Plan: Admit patient to med surgical floor. Monitor vitals as per routine. Continue all postop orders as per Dr. Hall. Pain control with morphine and oxycodone. Hydralazine 10 mg IV as needed for any elevated blood pressure. Medications these consideration done and resumed all necessary home medication other than Xarelto Zofran 4 mg as needed for any elevated blood pressure. Consult PT/OT to evaluate and treat. DVT prophylaxis SCD (1) Observation after surgery Status: Acute Assessment and Plan: As above - Location and Group Information SMG-billable encounter: Yes Service location: outpatient/observation Provider group: [facility] - Sincere M Encounter Coding Attending date of service: 08/22/24 Initial Hospital or Observation Care: Level 3 32596 Time-based billing attestation: - Attestation Attestation: I have reviewed and updated the patient's past medical, social, and family history as necessary and have reviewed pertinent laboratory findings. Confirm PMH/FSH Attestation: Yes Problem List Attestation Statement: I have documented a relevant problem and problem plan for this visit. Attending Confirm Problem: Yes Attending Problem List Check: Pass GM Quality VTE Risk Level: Very low VTE Prophylaxis Device: Seq Compression Device - Patient Rights Does Pt Have an Advanced Directive for End of Life Issues?: No Advance Directives on File from Prior Visit?: No Does Patient Have a Health Care Proxy?: No Health Care Proxy on File from Prior Visit?: No Risk Calculators Dictated By: Sin Tolentino MD Signed By: iSn Tolentino MD 08/22/24 1751 DD/ 1148 TD/TT: 08/22/24 1148 Sheeter Waxer Operator: TRICIA cc: TRICIA; LANRE; PCPNO* Alber Ivey MD; Md JAMESON Lantigua; Sin Tolentino MD [facility]2025-01-06 09:48:03* Braden Bess, [facility] - 06/12/2024 9:30 AM ARMATURE CONNECTOR CHIEF COMPLAINT: PLANTAR FAT PAD ATROPHY, BILATERAL TAILOR'S BUNION, BILATERAL HISTORY OF PRESENT ILLNESS: Patient states very satisfied with pain improvements using [employer]OF[employer] sandals /shoes Patient denies pain, infection, injury, wounds in the bilateral lower extremity --- Patient states long history of hyperkeratotic lesions related to tailor's bunion and painful feet Patient states symptoms have slowly been worsening, since approximately 2021 Patient denies infection, injury, wounds Patient states pain currently rated 2/10 on palpation, bilateral plantar feet OBJECTIVE: PHYSICAL EXAM OF THE LOWER EXTREMITY VASCULAR: (-) edema (-) ecchymosis (-) erythema Dorsal pedis pulse, graded 2/4; bilateral Posterior tibial pulse, graded 2/4; bilateral Capillary Refill time: within normal limits; bilateral (-) varicosities (+) pedal hair growth NEUROLOGICAL: (+) sensation with 5.07 [place] monofilament examination to the most distal lower extremity (-) tinel's sign (-) clonus present DERMATOLOGICAL: (-) open wounds (-) signs of soft tissue infection (-) ischemic tissue (-) abscess (-) other primary or secondary lesions (+) normal temperature when compared to contralateral limb (+) normal color, tugor, and elasticity MUSCULOSKELETAL: (-) pain on palpation or with range of motion, bilateral lower extremity (+) atrophy plantar fat pad, BILATERAL (+) tailor's bunion, bilateral (+) rigid contracted hammertoes, bilateral (+) semi flexible cavus foot type, bilateral 5/5 muscle strength to extrinsic pedal muscle groups (-) evidence of compartment syndrome (-) evidence of deep vein thrombosis ASSESSMENT: PLANTAR FAT PAD ATROPHY, BILATERAL TAILOR'S BUNION, BILATERAL PLAN: - Extensive visit discussing possible pedal complications associated with bunion and hammertoe deformities - Pain - [id number] as needed - Xrays - patient defers previously ordered 03/06/2024, and understands risks - Options -discussed multiple conservative and surgical options including but not limited to physical therapy, supportive shoe gear, custom orthotics - tailor's bunion - discussed conservative and surgical options, patient defers surgery understands risks - orthotics- discussed atms-ejl-[id number] and custom - shoe gear - wearing OOFOS will padded shoes/sandals, starting approximately February 2024 - Return 12 weeks possible custom orthotics if pain symptoms recur Patient advised to report to my clinic or the emergency room immediately with any questions or concerns.Patient Instructions:Discussion: A detailed discussion was provided to the patient with specific reference to etiology, pathology,alternate treatment options, and prognosis. All risks and complications (including side effects) with each treatment/medication alternative were outlined in detail including but not limited to: Pain, swelling, numbness,loss of function, loss of limb, bleeding, hematoma, scarring, failure to relieve condition, surgery, additional/revisional surgery, reflex sympathetic dystrophy, complex regional pain syndrome, reoccurrence of deformity, joint stiffness, flail toe, bone and/or soft tissue infection, blood clots, pulmonary embolism, possible , delayed or non-healing. X-rays, graphs and drawings were all used to assist with patient comprehension when appropriate. All patients questions were answered and stated they fully understood. No guarantee as to results or outcome of treatment was made. I have discussed with the patient or legally responsible person prior to obtaining consent: the risks, potential benefits and drawbacks, significant alternatives, potential for problems related to recuperation, likelihood of success, and possible results of non-treatment, and the patient or the legally responsible person has agreed to proceed. 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: PLANTAR FAT PAD ATROPHY, BILATERAL TAILOR'S BUNION, BILATERAL HISTORY OF PRESENT ILLNESS: Patient states very satisfied with pain improvements using OOFOS sandals /shoes Patient denies pain, infection, injury, wounds in the bilateral lower extremity --- Patient states long history of hyperkeratotic lesions related to tailor's bunion and painful feet Patient states symptoms have slowly been worsening, since approximately 2021 Patient denies infection, injury, wounds Patient states pain currently rated 2/10 on palpation, bilateral plantar feet OBJECTIVE: PHYSICAL EXAM OF THE LOWER EXTREMITY VASCULAR: (-) edema (-) ecchymosis (-) erythema Dorsal pedis pulse, graded 2/4; bilateral Posterior tibial pulse, graded 2/4; bilateral Capillary Refill time: within normal limits; bilateral (-) varicosities (+) pedal hair growth NEUROLOGICAL: (+) sensation with 5.07 [place] monofilament examination to the most distal lower extremity (-) tinel's sign (-) clonus present DERMATOLOGICAL: (-) open wounds (-) signs of soft tissue infection (-) ischemic tissue (-) abscess (-) other primary or secondary lesions (+) normal temperature when compared to contralateral limb (+) normal color, tugor, and elasticity MUSCULOSKELETAL: (-) pain on palpation or with range of motion, bilateral lower extremity (+) atrophy plantar fat pad, BILATERAL (+) tailor's bunion, bilateral (+) rigid contracted hammertoes, bilateral (+) semi flexible cavus foot type, bilateral 5/5 muscle strength to extrinsic pedal muscle groups (-) evidence of compartment syndrome (-) evidence of deep vein thrombosis ASSESSMENT: PLANTAR FAT PAD ATROPHY, BILATERAL TAILOR'S BUNION, BILATERAL PLAN: - Extensive visit discussing possible pedal complications associated with bunion and hammertoe deformities - Pain - gbtc-uqu-ylooxis as needed - Xrays - patient defers previously ordered 03/06/2024, and understands risks - Options -discussed multiple conservative and surgical options including but not limited to physical therapy, supportive shoe gear, custom orthotics - tailor's bunion - discussed conservative and surgical options, patient defers surgery understands risks - orthotics- discussed htfy-rpi-nofrwyn and custom - shoe gear - wearing OOFOS will padded shoes/sandals, starting approximately February 2024 - Return 12 weeks possible custom orthotics if pain symptoms recur Patient advised to report to my clinic or the emergency room immediately with any questions or concerns.Patient Instructions:Discussion: A detailed discussion was provided to the patient with specific reference to etiology, pathology,alternate treatment options, and prognosis. All risks and complications (including side effects) with each treatment/medication alternative were outlined in detail including but not limited to: Pain, swelling, numbness,loss of function, loss of limb, bleeding, hematoma, scarring, failure to relieve condition, surgery, additional/revisional surgery, reflex sympathetic dystrophy, complex regional pain syndrome, reoccurrence of deformity, joint stiffness, flail toe, bone and/or soft tissue infection, blood clots, pulmonary embolism, possible , delayed or non-healing. X-rays, graphs and drawings were all used to assist with patient comprehension when appropriate. All patients questions were answered and stated they fully understood. No guarantee as to results or outcome of treatment was made. I have discussed with the patient or legally responsible person prior to obtaining consent: the risks, potential benefits and drawbacks, significant alternatives, potential for problems related to recuperation, likelihood of success, and possible results of non-treatment, and the patient or the legally responsible person has agreed to proceed. [facility]
--- NOTE | 2024-08-28 08:19 | RAD REPORT ---
Exam:Forearm Left Clinical history: Left forearm pain Findings: No fracture or dislocation seen.
--- NOTE | 2024-08-28 08:22 | RAD REPORT ---
EXAM: CT brain without contrast HISTORY: Headache status post fall COMPARISON: 2022 TECHNIQUE: Multiple contiguous axial images were obtained and a CT of the brain without contrast.. Sagittal and coronal reconstruction performed. Automated exposure control, adjustment of the mA and/or kV according to patient size, and/or iterative reconstruction. Unless otherwise specified, incidental f indings do not require dedicated imaging follow-up FINDINGS: Right frontal scalp swelling. An intracranial bleed is not seen Ventricles are normal caliber No extra-axial fluid collection noted Mild low-density paraventricular, deep and subcortical white matter likely ischemic changes secondary to small vessel disease. Fluid within the left maxillary sinus could indicate acute sinusitis. IMPRESSION: No acute intracranial abnormality noted. If the patient continues to have symptoms to suggest an acute intracranial abnormality then MRI of th e brain would be recommended.
--- NOTE | 2024-08-28 08:25 | EDPHYS ---
Physician Documentation [facility] Name: Phylicia Ghotra Age: 73 yrs Sex: Female : 1950 Arrival Date: 08/28/2024 Time: 07:13 Bed 17 Private MD: ED Physician Eliecer Zeng HPI: 08/28 07:44 This 73 yrs old Female presents to ER via Ambulatory with complaints of Fall ec2 Injury. 07:44 Patient arrives today for evaluation after ground-level fall. Reports that she had ec2 fallen on the bed, landed on her left forearm, also struck her right head. No LOC, is on Xarelto. Had recent right shoulder surgery however did not injure this area. Also sustained an abrasion to the hand.. Historical: - Allergies: 07:23 meloxicam; iw - Home Meds: 07:23 Xarelto 20 mg Oral tab 1 tab once daily [Active]; Effexor Oral [Active]; iw - PMHx: 07:23 Atrial Fib; Arthritis; blood clots; GERD; iw - Infectious Disease History:: Denies. - Social history:: Smoking status: Patient denies any tobacco usage or history of. ROS: 07:45 Constitutional: as per hpi ec2 Exam: 07:45 Constitutional: GEN: NAD Head: atraumatic Eyes: EOMI Ears: External ears are ec2 normal. CV: regular rate LUNGS: no respiratory distress ABD: non-distended SKIN: no evidence of rashes, contusion to the right forehead, abrasion to the right hand, left forearm with ecchymosis appreciated to the mid forearm. MSK: no evidence of trauma, no C-spine ttp. Vital Signs: 07:21 BP 136 / 75; Pulse 79; Resp 16; Pulse Ox 99% on R/A; Weight 80.74 kg; Height 5 ft. 7 iw in. ; Pain 6/10; 07:21 Body Mass Index 27.88 (80.74 kg, 170.18 cm) iw 07:21 Pain Scale: Adult iw MDM: 07:38 Medical Screening Exam initiated ec2 07:45 Data reviewed: vital signs, nurses notes. ED course: Patient arrives today for ec2 evaluation after ground-level fall for examination yields MSK findings as above. Will obtain left forearm radiograph, CT scan of the head given the patient's age and coagulation status. Will forego tetanus as patient is up-to-date most recently 5 years ago.. 08:24 ED course: Imaging negative for acute pathology. Will discharge home have patient ec2 follow-up with PCP. Return precautions given. Instructed on Tylenol administration for body pains.. 08/28 07:44 Order name: Forearm Left XRAY; Complete Time: 08:24 ec2 08/28 07:44 Order name: CT Head Brain wo Cont; Complete Time: 08:24 ec2 08/28 07:44 Order name: Wound Care; Complete Time: 07:55 ec2 Administered Medications: No medications were administered Disposition Summary: 08/28/24 08:25 Discharge Ordered Notes: Location: Home ec2 Condition: Stable ec2 Diagnosis - Forearm Contusion ec2 - Head Contusion ec2 Followup: ec2 - With: Private Physician - When: - Reason: Re-evaluation by your physician Discharge Instructions: - Discharge Summary Sheet ec2 - Contusion, [id number] ec2 Forms: - Medication Reconciliation Form ec2 - Antibiotic Education ec2 - Prescription Opioid Use ec2 - Patient Portal Instructions ec2 - Leadership Thank You Letter ec2 Signatures: Dispatcher [employer] Lisa Deluca RN RN iw Corral, Edwin, MD MD ec2
--- NOTE | 2024-08-28 08:25 | ER ---
Nurse's Notes [facility] Name: Phylicia Ghotra Age: 73 yrs Sex: Female : 1950 Arrival Date: 08/28/2024 Time: 07:13 Bed 17 Private MD: Diagnosis: Forearm Contusion;Head Contusion Presentation: 08/28 07:21 Chief complaint: Patient states: was sitting on side of bed and stepped down on a step iw and tripped and fell on floor, hit her left arm and right side of head, no LOC, had surgery on right shoulder a week ago. Coronavirus screen: At this time, the client does not indicate any symptoms associated with coronavirus-19. Ebola Screen: No symptoms or risks identified at this time. Initial Sepsis Screen: Does the patient meet any 2 criteria? No. Patient's initial sepsis screen is negative. Does the patient have a suspected source of infection? No. Patient's initial sepsis screen is negative. Risk Assessment: Do you want to hurt yourself or someone else? Patient reports no desire to harm self or others. 07:21 Method Of Arrival: Ambulatory iw 07:21 Acuity: ZINA 4 iw Historical: - Allergies: 07:23 meloxicam; iw - Home Meds: 07:23 Xarelto 20 mg Oral tab 1 tab once daily [Active]; Effexor Oral [Active]; iw - PMHx: 07:23 Atrial Fib; Arthritis; blood clots; GERD; iw - Infectious Disease History:: Denies. - Social history:: Smoking status: Patient denies any tobacco usage or history of. Screenin:38 [facility] ED Fall Risk Assessment (Adult) History of falling in the last 3 months, kc6 including since admission Yes- single mechanical fall (1 pt) Confusion or Disorientation No (0 pts) Intoxicated or Sedated No (0 pts) Impaired Gait No (0 pts) Mobility Assist Device Used No (0 pt) Altered Elimination No (0 pt) Score/Fall Risk Level 0 - 2 = Low Risk Oriented to surroundings, Maintained a safe environment, Educated pt \T\ family on fall prevention, incl call for assistance when getting out of bed. Abuse screen: Denies threats or abuse. Denies injuries from another. Nutritional screening: No deficits noted. Tuberculosis screening: No symptoms or risk factors identified. Assessment: 07:55 General: Appears in no apparent distress. comfortable, well groomed, well developed, kc6 Behavior is calm, cooperative, appropriate for age. Pain: Complains of pain in forehead, anterior aspect of right shoulder and dorsal aspect of left forearm. Neuro: Level of Consciousness is awake, alert, obeys commands, Oriented to person, place, time, situation, Appropriate for age. Cardiovascular: No deficits noted. Respiratory: Airway is patent Trachea midline Respiratory effort is even, unlabored, Respiratory pattern is regular, symmetrical. GI: No signs and/or symptoms were reported involving the gastrointestinal system. : No signs and/or symptoms were reported regarding the genitourinary system. EENT: No signs and/or symptoms were reported regarding the EENT system. Derm: Skin is healthy with good turgor, is fragile, is thin, Skin is pink, warm \T\ dry. skin tear to the right hand. Musculoskeletal: Capillary refill < 3 seconds, Range of motion: limited in right shoulder. Vital Signs: 07:21 BP 136 / 75; Pulse 79; Resp 16; Pulse Ox 99% on R/A; Weight 80.74 kg; Height 5 ft. 7 iw in. ; Pain 6/10; 07:21 Body Mass Index 27.88 (80.74 kg, 170.18 cm) iw 07:21 Pain Scale: Adult iw ED Course: 07:16 Patient arrived in ED. mr 07:22 Triage completed. iw 07:35 Cheryl Kulkarni, RN is Primary Nurse. kc6 07:38 Eliecer Zeng MD is Attending Physician. ec2 07:38 Patient has correct armband on for positive identification. Bed in low position. Call kc6 light in reach. Side rails up X 1. Adult w/ patient. Pulse ox on. NIBP on. Door closed. Noise minimized. Lights dimmed. Pillow given. Verbal reassurance given. 07:38 Arm band placed on. kc6 07:38 Patient maintains SpO2 saturation greater than 95% on room air. kc6 07:57 Wound care: to skin tear located on right hand was cleaned with Hibiclens, dressed with kc6 Neosporin, band aid, Patient tolerated well. 08:07 CT Head Brain wo Cont In Process Unspecified. EDMS 08:09 Forearm Left XRAY In Process Unspecified. EDMS 08:32 No provider procedures requiring assistance completed. Patient did not have IV access kc6 during this emergency room visit. Administered Medications: No medications were administered Medication: 08:33 VIS not applicable for this client. kc6 Outcome: 08:25 Discharge ordered by . ec2 08:32 Discharged to home ambulatory, with significant other, kc6 08:32 Condition: good 08:32 Discharge instructions given to patient, significant other, Instructed on discharge instructions, follow up and referral plans. Demonstrated understanding of instructions, follow-up care, 08:33 Patient left the ED. kc6 Signatures: Dispatcher [employer] EDMS [place]ana Dewey, Reg Reg mr Lisa Zavala, RN RN Cheryl Zaldivar RN RN kc6 Eliecer Zeng MD MD ec2 Corrections: (The following items were deleted from the chart) 07:23 07:21 BP 136 / 75; Pulse 79bpm; Resp 16bpm; Pulse Ox 99% RA; iw iw
[2024-08-28 08:39] VITALS: BP 136/75; O2SAT 99
== END 2024-08-28 08:33 | disposition home or self-care (01) ==
LOC: ER 07:13
DX: S00.83XA Contusion of other part of head, initial encounter (principal); S50.12XA Contusion of left forearm, initial encounter; W18.30XA Fall on same level, unspecified, initial encounter; I48.91 Unspecified atrial fibrillation; Z79.01 Long term (current) use of anticoagulants
CPT/HCPCS: 70450; 99283